=== PATIENT | female | born 1945 | race American Indian/Alaskan Native ===

== ENCOUNTER 2016-08-22 10:13 | Emergency (ER) | payer MEDICARE ==
[2016-08-22 10:13] VITALS: BMI 26.2
[2016-08-22 10:29] VITALS: TEMP 98.9
[2016-08-22] MEDS ORDERED: Sodium Chloride 0.9% 1,000 ML IV ONE (10:42)
--- NOTE | 2016-08-22 10:44 | C.PDOC ---
History Of Present Illness 71 year old patient, with a past medical history of diabetes, hypertension, hypercholesterolemia, and hyperlipidemia, presents to the ED complaining of nausea and vomiting since last night. Patient notes she had similar symptoms previously. Her last bowel movement was yesterday. Denies pain. Patient reports she did not take her chronic medications. Patient denies alcohol use, dysuria, dizziness, fever, diarrhea, headache, light headedness, shortness of breath, or chest pain. Time Seen by Provider: 08/22/16 10:22 Chief Complaint (Nursing): Abdominal Pain History Per: Patient History/Exam Limitations: no limitations Onset/Duration Of Symptoms: Days (1) Current Symptoms Are (Timing): Still Present Context: Other Severity: Mild Pain Scale Rating Of: 3 Radiation Of Pain To:: None Associated Symptoms: Nausea, Vomiting Exacerbating Factors: None Alleviating Factors: None Last Bowel Movement: Yesterday Recent travel outside of the [place]: No Abnormal Vaginal Bleeding: No Past Medical History Reviewed: Historical Data, Nursing Documentation, Vital Signs Vital Signs: Last Vital Signs Temp 98.9 F 08/22/16 10:25 Pulse 94 H 08/22/16 14:39 Resp 16 08/22/16 14:39 BP 179/90 H 08/22/16 14:39 Pulse Ox 95 08/22/16 15:14 - Medical History PMH: Diabetes, HTN, Hypercholesterolemia, Hyperlipidemia Surgical History: Endoscopy - [facility] Procedures TOE AMPUTATION (11/01/14) Family History: States: Unknown Family Hx - Social History Hx Tobacco Use: No Hx Alcohol Use: No Hx Substance Use: No - Immunization History Hx Tetanus Toxoid Vaccination: Yes Hx Influenza Vaccination: No Hx Pneumococcal Vaccination: Yes Review Of Systems Except As Marked, All Systems Reviewed And Found Negative. Constitutional: Negative for: Fever Cardiovascular: Negative for: Chest Pain, Light Headedness Respiratory: Negative for: Shortness of Breath Gastrointestinal: Positive for: Nausea, Vomiting. Negative for: Abdominal Pain , Diarrhea Genitourinary: Negative for: Dysuria Neurological: Negative for: Dizziness Physical Exam - Physical Exam Appears: Non-toxic, Other (uncomfortable) Skin: Warm, Dry Head: Atraumatic, Normacephalic Eye(s): bilateral: Normal Inspection, EOMI Nose: Normal Oral Mucosa: Moist Neck: Normal ROM, Supple Chest: Symmetrical Cardiovascular: Rhythm Regular Respiratory: Normal Breath Sounds, No Rales, No Rhonchi, No Wheezing Gastrointestinal/Abdominal: Bowel Sounds ((+) bowel soudns in 4 quadrants), Soft , No Tenderness, No Guarding, No Rebound Back: Normal Inspection, No CVA Tenderness Extremity: Normal ROM Neurological/Psych: Oriented x3, Normal Speech, Normal Cognition, Normal Cranial Nerves (grossly intact) Gait: Steady ED Course And Treatment - Laboratory Results Result Diagrams: 08/22/16 11:18 08/22/16 11:18 ECG: Interpreted By Me, Viewed By Me ECG Rhythm: Sinus Tachycardia Interpretation Of ECG: Non-specific changes Rate From EC (bpm) O2 Sat by Pulse Oximetry: 95 (RA) Pulse Ox Interpretation: Normal - CT Scan/US Abdomen/Pelvis CT Other Rad Studies (CT/US): Read By Radiologist (Marcelino Gutierrez MD), Radiology Report Reviewed CT/US Interpretation: PROCEDURE: CT Abdomen and Pelvis without intravenous contrast. HISTORY: Abdominal pain. COMPARISON: None. TECHNIQUE: Multiple contiguous axial images were performed through the abdomen and pelvis without the use of intravenous contrast. Subsequently, sagittal and coronal reformatted images were obtained.. Radiation dose: Total exam DLP = 249 mGy- cm. This CT exam was performed using one or more of the following dose reduction techniques: Automated exposure control, adjustment of the mA and/or kV according to patient size, and/or use of iterative reconstruction technique. FINDINGS: LOWER THORAX: Atelectasis at the lung bases. Coronary calcifications. Mild pericardial thickening. LIVER: Fatty infiltration of the liver. GALLBLADDER AND BILE DUCTS: Question mild gallbladder sludge. PANCREAS : Fatty atrophy of the pancreas. SPLEEN: Unremarkable. ADRENALS: Mild nodularity of the adrenal glands. KIDNEYS AND URETERS: Right kidney: Mild right hydroureteronephrosis. Course of the right ureter is tortuos. Along the course of the distal right ureter, near the ureterovesicular junction, there is a punctate 1-2 millimeter calculi/calcification seen on series 3, image 143. It is unclear whether this is intraureteral. Adjacent multiple calcified phleboliths are noted. In addition, at the level of the mid right ureter, a punctate calculi/calcification measuring 3 millimeters appears to be in an adjacent vessel. Left Kidney: No calculi or hydronephrosis. VASCULATURE: Coronary calcifications. Prominent atherosclerotic calcification and plaque within the aorta and iliac vessels. BOWEL: Small hiatal hernia. Fecal retention in the colon. Diverticuli. Mild thickening of the right hemicolon and cecum which may be related to partial underdistention. APPENDIX: Unremarkable. Normal appendix. PERITONEUM: Unremarkable. No free fluid. No free air. LYMPH NODES: Unremarkable. No enlarged lymph nodes. BLADDER: Unremarkable. REPRODUCTIVE: Heterogeneous and prominent prostate. BONES: Prominent degenerative changes in spine. Endplate sclerosis with posterior disc osteophyte complex at the L5-S1 level. Additional multilevel posterior disc bulges. OTHER FINDINGS: Motion artifact limits evaluation. IMPRESSION: 1.Mild right hydroureteronephrosis. Course of the right ureter is tortuos. Along the course of the distal right ureter, near the ureterovesicular junction , there is a punctate 1-2 millimeter calculi/calcification seen on series 3, image 143. It is unclear whether this is intraureteral. Adjacent multiple calcified phleboliths are noted. In addition, at the level of the mid right ureter, a punctate calculi/calcification measuring 3 millimeters appears to be in an adjacent vessel. 2. Fecal retention in the colon. Diverticuli. Mild thickening of the right hemicolon and cecum which may be related to partial underdistention. 3. Additional findings as above. Progress Note: Plan: -EKG. -Labs. -Pepcid, Zofran, IV fluids. --Reassess and disposition. Upon reassessment, patient is resting comfortably, abdomen remains soft, and patient is tolerating PO. Patient denies chest pain, shortness of breath or abdominal pain. She states she is feeling fine and feels comfortable going home. Elevated BP notes, pt notes she did not take her medicvation today and will take it when she gets home. Patient will be discharged home. Patient is instructed to follow up with her PMD. Return if symptoms persist or worsen. Case discsused with Dr Rajput who evalauted labs and radiology and agree dupon plan , treatment, and discharge. Disposition - Disposition Referrals: Fabian Cosby MD [Staff Provider] - Disposition: HOME/ ROUTINE Disposition Time: 15:08 Condition: STABLE Additional Instructions: Follow up with your primary medical doctor or clinic in 2-5 days for further evaluation. Take medications as prescribed. Return to the emergency department at any time if symptoms persist or worsen. 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 - Scribe Statement The provider has reviewed the documentation as recorded by the Scribe Mabel Rose All medical record entries made by the Scribe were at my direction and personally dictated by me. I have reviewed the chart and agree that the record accurately reflects my personal performance of the history, physical exam, medical decision making, and the department course for this patient. I have also personally directed, reviewed, and agree with the discharge instructions and disposition.
[2016-08-22] MEDS ORDERED: Sodium Chloride 0.9% 1,000 ML ONE (11:10)
[2016-08-22 11:23] LABS: BASO % 0.3 % (0.0-2.0); HEMATOCRIT 39.2 % (34.0-47.0); LYMPH # 0.6 K/uL (1.0-4.3); LYMPH % 3.3 % (20.0-40.0); MEAN CELL VOLUME 83.3 fL (81.0-99.0); MEAN CORPUSCULAR HEMOGLOBIN 26.6 pg (27.0-31.0); MEAN PLATELET VOLUME 8.8 fL (7.2-11.7); MONO # 0.7 K/uL (0.0-0.8); MONO % 3.9 % (0.0-10.0); PLATELET COUNT 200 K/uL (130-400); RED CELL DISTRIBUTION WIDTH 13.8 % (11.5-14.5)
[2016-08-22 11:25] LABS: WHITE BLOOD COUNT 17.4 K/uL (4.8-10.8)
[2016-08-22 11:40] LABS: CHLORIDE 93 mmol/L (98-107); SODIUM 132 mmol/L (132-148)
[2016-08-22 11:41] LABS: POTASSIUM 4.7 mmol/L (3.6-5.2)
[2016-08-22 11:43] LABS: ALB/GLOB RATIO 1.1 (1.0-2.1); ALKALINE PHOSPHATASE 141 U/L (38-126); ALT/SGPT 17 U/L (9-52); AST/SGOT 20 U/L (14-36); BILIRUBIN,TOTAL 0.6 mg/dL (0.2-1.3); BLOOD UREA NITROGEN 16 mg/dL (7-17); CARBON DIOXIDE 25 mmol/L (22-30); GFR AFRICAN-AMERICAN > 60; GLUCOSE,RANDOM 367 mg/dL (65-105); TOTAL PROTEIN 7.8 g/dL (6.3-8.3)
[2016-08-22] MEDS ORDERED: Iodixanol 320 MG/ML 100 ML BOTTLE IV ONE (12:22)
[2016-08-22 12:27] LABS: URINE BILIRUBIN NEGATIVE (NEGATIVE); URINE BLOOD 1+ (NEGATIVE); URINE COLOR Yellow (YELLOW); URINE GLUCOSE (UA) 3+ mg/dL (Normal); URINE KETONE NEGATIVE (NEGATIVE); URINE LEUKOCYTE ESTERASE NEG Leu/uL (Negative); URINE PROTEIN 2+ mg/dL (NEGATIVE); URINE UROBILINOGEN NORMAL mg/dL (0.2-1.0); WBC URINE < 1 /hpf (0-5)
--- NOTE | 2016-08-22 12:40 | RAD ---
PROCEDURE: CHEST RADIOGRAPH, 1 VIEW HISTORY: Shortness of breath COMPARISON: 11/04/2014 FINDINGS: LUNGS: Mild venous congestion. Mild patchy increased markings at the left lung base. Right apical nodule/ granuloma. PLEURA: No pneumothorax or pleural fluid seen. CARDIOVASCULAR: Normal. OSSEOUS STRUCTURES: No significant abnormalities. VISUALIZED UPPER ABDOMEN: Normal. OTHER FINDINGS: None. IMPRESSION: Mild venous congestion. Mild patchy increased markings at the left lung base. Right apical nodule/ granuloma.
[2016-08-22 12:45] LABS: RBC URINE 2 /hpf (0-3); URINE BACTERIA RARE (<OCC)
[2016-08-22 13:05] LABS: NEUTROPHIL 93 % (50-75); TOTAL CELLS COUNTED 100
--- NOTE | 2016-08-22 14:33 | CT ---
PROCEDURE: CT Abdomen and Pelvis without intravenous contrast HISTORY: Abdominal pain COMPARISON: None. TECHNIQUE: Multiple contiguous axial images were performed through the abdomen and pelvis without the use of intravenous contrast. Subsequently, sagittal and coronal reformatted images were obtained.. Radiation dose: Total exam DLP = 249 mGy-cm. This CT exam was performed using one or more of the following dose reduction techniques: Automated exposure control, adjustment of the mA and/or kV according to patient size, and/or use of iterative reconstruction technique. FINDINGS: LOWER THORAX: Atelectasis at the lung bases. Coronary calcifications. Mild pericardial thickening. LIVER: Fatty infiltration of the liver. GALLBLADDER AND BILE DUCTS: Question mild gallbladder sludge. PANCREAS: Fatty atrophy of the pancreas. SPLEEN: Unremarkable. ADRENALS: Mild nodularity of the adrenal glands. KIDNEYS AND URETERS: Right kidney: Mild right hydroureteronephrosis. Course of the right ureter is tortuos. Along the course of the distal right ureter, near the ureterovesicular junction, there is a punctate 1-2 millimeter calculi/calcification seen on series 3, image 143. It is unclear whether this is intraureteral. Adjacent multiple calcified phleboliths are noted. In addition, at the level of the mid right ureter, a punctate calculi/calcification measuring 3 millimeters appears to be in an adjacent vessel. Left Kidney: No calculi or hydronephrosis. VASCULATURE: Coronary calcifications. Prominent atherosclerotic calcification and plaque within the aorta and iliac vessels. BOWEL: Small hiatal hernia. Fecal retention in the colon. Diverticuli. Mild thickening of the right hemicolon and cecum which may be related to partial underdistention. APPENDIX: Unremarkable. Normal appendix. PERITONEUM: Unremarkable. No free fluid. No free air. LYMPH NODES: Unremarkable. No enlarged lymph nodes. BLADDER: Unremarkable. REPRODUCTIVE: Heterogeneous and prominent prostate. BONES: Prominent degenerative changes in spine. Endplate sclerosis with posterior disc osteophyte complex at the L5-S1 level. Additional multilevel posterior disc bulges. OTHER FINDINGS: Motion artifact limits evaluation. IMPRESSION: 1.Mild right hydroureteronephrosis. Course of the right ureter is tortuos. Along the course of the distal right ureter, near the ureterovesicular junction, there is a punctate 1-2 millimeter calculi/calcification seen on series 3, image 143. It is unclear whether this is intraureteral. Adjacent multiple calcified phleboliths are noted. In addition, at the level of the mid right ureter, a punctate calculi/calcification measuring 3 millimeters appears to be in an adjacent vessel. 2. Fecal retention in the colon. Diverticuli. Mild thickening of the right hemicolon and cecum which may be related to partial underdistention. 3. Additional findings as above.
[2016-08-22 14:39] VITALS: BP 179/90; PULSE 94; RESP 16
[2016-08-22 14:40] VITALS: O2SAT 95
--- NOTE | 2016-08-23 18:40 | CARD ---
APPROVED REPORT EKG Measurement Heart [id number] <Conclusion> Sinus tachycardia Possible Left atrial enlargement Nonspecific T wave abnormality Abnormal ECG
== END 2016-08-22 15:23 | disposition home or self-care (01) ==
LOC: C.ER 10:13
DX: N13.2 Hydronephrosis with renal and ureteral calculous obstruction (principal); R11.2 Nausea with vomiting, unspecified